=== PATIENT | female | born 2000 | race Caucasian/White ===

== ENCOUNTER 2023-07-31 15:11 | Observation (INO) ==
--- NOTE | 2023-07-31 15:54 | ED Triage Note ---
Date of Service July 31, 2023 History of Present Illness This patient was briefly evaluated while in triage. An abbreviated physical exam was performed. This patient is a 22-year-old Female who presents to the ED for evaluation of sharp abdominal pains x 24 hours midline/suprapubic nausea no vomiting no diarrhea/constipation LMP 1 week ago mild dysuria yest Physical Exam GENERAL: NAD CARDIOVASCULAR: RRR RESPIRATORY: CTA ABDOMEN: BS x 4. TTP in RLQ Initial orders for labs and / or imaging were placed and patient was placed in the waiting area until a bed is available. Please see further documentation for the full ED course. MDM / Impression Impression Impression: Abdominal pain, Acute appendicitis
[2023-07-31 16:55] LABS: Basophils # (auto) 0.04 K/uL (0.00-0.20); Basophils % (auto) 0.5 %; Eosinophils # (auto) 0.02 K/uL (0.00-0.50); Eosinophils % (auto) 0.2 %; Hematocrit (blood only) 39.4 % (37.0-47.0); Hemoglobin 12.4 g/dl (12.0-16.0); Immature Granulocytes # (auto) 0.02 K/uL (0.01-0.20); Immature Granulocytes % (auto) 0.2 %; Lymphocytes # (auto) 1.01 K/uL (1.20-3.40); Lymphocytes % (auto) 11.6 %; Mean Corpuscular Hemoglobin 25.7 pg (25.0-34.0); Mean Corpuscular Hgb Conc 31.5 g/dL (32.0-36.0); Mean Corpuscular Volume 81.7 fL (80.0-100.0); Mean Platelet Volume 9.8 fL (9.4-12.4); Monocytes # (auto) 0.48 K/uL (0.11-0.59); Monocytes % (auto) 5.5 %; Neutrophils # (auto) 7.12 K/uL (1.40-6.50); Platelet Count 310 K/uL (130-400); RDW Coefficient of Variation 15.9 % (11.5-14.5); RDW Standard Deviation 47.8 fL (36.4-46.3); Red Blood Count 4.82 M/uL (4.20-5.40); White Blood Count 8.69 K/ul (4.8-10.8)
[2023-07-31 17:04] LABS: Appearance Urine Cloudy (Clear); Bacteria Urine Automated 1+ (Negative); Bilirubin Urine Negative (Negative); Blood Urine Negative (Negative); Color Urine Yellow; Epithelial Cell Urine Auto >30 /lpf (0-5); Glucose Urine UA Negative (Negative); Ketones Urine Negative (Negative); Leukocyte Esterase Urine Negative (Negative); Nitrite Urine Negative (Negative); Protein Urine Negative (Negative); RBC Urine Automated 0-4 /hpf (0-4); Specific Gravity Urine 1.018 (1.000-1.030); Urobilinogen Urine Negative (Negative)
[2023-07-31 17:11] LABS: Pregnancy Test, Serum Negative (Negative)
[2023-07-31 17:20] LABS: Alanine Aminotransferase 10 U/L (7-52); Albumin Globulin Ratio 1.4 (0.9-2); Albumin Level 4.6 gm/dl (3.4-5.0); Alkaline Phosphatase 77 U/L (34-104); Anion Gap 6 (3-11); Aspartate Aminotransferase 16 U/L (13-39); BUN Creatinine Ratio 15.3 (10-20); Blood Urea Nitrogen 9 mg/dl (6-23); Calcium 9.6 mg/dl (8.6-10.3); Carbon Dioxide 29 mmol/L (21-32); Chloride 102 mmol/L (98-107); Creatinine Clr Calc Pharmacy 151.5 ml/min; Est GFR (African American) > 150.0 ml/min; Est GFR (Non-African American) 131.9 ml/min; Globulin 3.4 gm/dl (2.5-4.0); Glucose 128 mg/dl (70-99(Fasting)); Potassium 3.7 mmol/L (3.5-5.1); Sodium 137 mmol/L (136-145)
[2023-07-31] MEDS ORDERED: OPTIRAY 320 100ml IV ONE (18:13)
--- NOTE | 2023-07-31 19:03 | CT Scan Report ---
ABDOMEN AND PELVIS CT WITH IV CONTRAST CT DOSE: 829.51 mGy.cm HISTORY: Acute right lower quadrant abdominal pain RLQ abd pain TECHNIQUE: Multiaxial CT images of the abdomen and pelvis were performed following the IV administrat ion of 94 cc of Optiray, A dose lowering technique was utilized adhering to the principles of ALARA. COMPARISON STUDY: None. FINDINGS: The lung bases are clear. The liver, spleen, gallbladder, pancreas, kidneys, and adrenal gl ands are within normal limits. The appendix is dilated and fluid-filled measuring up to 11 mm transve rsely. There is periappendiceal inflammation without drainable fluid collection. Small amount of free pelvic fluid. No bowel wall thickening or obstruction. Moderate wall thickening which is partially d ecompressed. Uterus and adnexa are unremarkable. No suspicious lytic or blastic osseous lesions. IMPRESSION: Acute appendicitis. No pneumoperitoneum or abscess. ACT 112: Negative or not required by law. The above report was generated using voice recognition software. It may contain grammatical, syntax o r spelling errors. Electronically signed by: Ross Bateman M.D. 07/31/2023 7:02 PM
[2023-07-31] MEDS ORDERED: ACETAMINOPHEN 1,000 MG/100 ML VIAL IV STA (19:22)
--- NOTE | 2023-07-31 19:29 | Emergency Department Note ---
Impression & Plan Abdominal pain, Acute appendicitis ED Provider Note ED Provider Note NAME: JENSEN GOMEZ AGE:22 SEX: Female : 2000 ARRIVES VIA: private vehicle INFORMANT: Patient ED PROVIDER(s): María Mancia DO CHIEF COMPLAINT: abdominal pain HPI: This is a 22-year-old female presents emerged department due to concern for abdominal pain. Patient states she began with abdominal pain yesterday. She states it was around her bellybutton as well as across her lower abdomen. She states pain seemed lower today and was worse on the right than the left. Patient denies any coming fevers, chills, nausea or vomiting. No recent change in urine or stools. No prior GI issues or abdominal surgery. Patient denies chance of . No recent illness. Patient states she last had a small piece of bread at 3pm. I did update the patient's father via her cell phone at her request. PAST MEDICAL HISTORY:See Below PAST SURGICAL HISTORY:See Below FAMILY HISTORY:See Below SOCIAL HISTORY:See Below HOME MEDICATIONS:See Below ALLERGIES:See Below VITALS:See Below PHYSICAL EXAMINATION: GENERAL: alert, well appearing, well nourished, no distress, non-toxic EYE EXAM: normal conjunctiva, PERRL and EOM's grossly intact OROPHARYNX: no exudate, no erythema, lips, buccal mucosa, and tongue normal and mucous membranes are moist NECK: supple, no nuchal rigidity, no adenopathy, non-tender LUNGS: Clear to auscultation. Normal chest wall mechanics, no w/r/r HEART: no murmurs, S1 normal and S2 normal ABDOMEN: abdomen soft, tenderness b/l LQ R>L, normo-active bowel sounds, no masses, no rebound or guarding. BACK: Back is symmetrical on inspection and there is no deformity, no midline tenderness, no CVA tenderness. SKIN: no rashes, petechiae, orbruising UPPER EXTREMITIES: upper extremities are grossly normal. FROM, nml pulses b/l. LOWER EXTREMITIES: No pitting edema. FROM, nml pulses b/l. NEURO EXAM: Normal sensorium, cranial nerves II-XII grossly intact, normal speech, no facial droop,nogross weakness of arms, no gross weakness of legs. Gross sensation intact. No ataxia. Vital Signs: reviewed and remarkable Differential Diagnosis: Colitis, viral syndrome, bowel obstruction, appendicitis, perforation, GI bleed, ovarian cysts, ovarian torsion, PID, UTI, pyelonephritis, as well as others were considered MEDICAL DECISION MAKING: This is a 22-year-old female who presents emergency department due to concern for abdominal pain for greater than 24 hours. Patient was afebrile vital signs stable. Labs drawn and sent, IV established, and patient sent for CT imaging. Patient initially evaluated in a triage waiting room area due to her presentation and a day of high volume and acuity. We did discuss the lab and CT findings. I also discussed the findings with her father over her cell phone per her request. We discussed usual treatment and plan with an uncomplicated acute appendicitis. I did discuss the case with Dr. Gonzalez of general surgery. Patient started on IV fluids and given additional IV Tylenol to help with pain. She was otherwise hemodynamically stable awaiting operative intervention. Consultation(s): 1929: Discussed with Dr. Gonzalez, gen surg. ER Treatment Provided: See below Diagnostics Interpreted By Me: -ECG: [] -Cardiac Monitoring: An order was placed for continuous cardiac monitoring. The monitor shows a rate of 70 with normal sinus rhythm. -Laboratory studies: As stated above and show below. -Imaging studies: [] Triage Nursing Note Reviewed Prior/Outside Records Reviewed Past Med/Surg History Medical History No significant past medical history Surgical History H/O wisdom tooth extraction Social History Smoking Status: Never smoker Hx Alcohol Use: Yes Alcohol type: hard liquor Hx Substance Use: No Preferred Language: Hungarian Communication Ability: Effective Shaper Machine Hand Required: No Beliefs That Will Affect Care: None Current Living Situation: Other Current Living Situation Comment: Apartment Other Information That Helps Us Care for You: No Feels Safe at Home: Yes Assistive Devices: None Allergies Allergies Allergy/AdvReac Type Severity Reaction Status Date / Time No Known Allergies Allergy Verified 08/01/23 09:08 Home Meds Home Medications Medication Instructions Recorded Confirmed No Known Home Medications 07/31/23 07/31/23 Results & Data (ED) Vital Signs Vital Signs - 24 hr 07/31/23 15:51 07/31/23 20:15 07/31/23 20:31 Temperature 36.5 C Temperature Source Temporal Artery Scan Pulse Rate 69 70 Pulse Rate [Apical] 62 Respiratory Rate 18 20 19 Blood Pressure 130/87 143/99 H Blood Pressure [Left Arm] 147/85 H Blood Pressure Mean 101 113 Blood Pressure Mean [Left Arm] 105 Pulse Oximetry 97 97 100 Oxygen Delivery Method Room Air Room Air Room Air Sepsis Recent Fever Within 48 Hours No Sepsis New/Unexplained Change in Mental Status N/A Sepsis Action Taken by Nursing No Action Required Laboratory Data 07/31/23 16:31 07/31/23 16:31 Lab Results 07/31/23 07/31/23 07/31/23 Range/Units 16:31 16:31 16:31 WBC 8.69 (4.8-10.8) K/ul RBC 4.82 (4.20-5.40) M/uL Hgb 12.4 (12.0-16.0) g/dl Hct 39.4 (37.0-47.0) % MCV 81.7 (80.0-100.0) fL MCH 25.7 (25.0-34.0) pg MCHC 31.5 L (32.0-36.0) g/dL RDW Std Deviation 47.8 H (36.4-46.3) fL RDW Coeff of Sebasti[place] 15.9 H (11.5-14.5) % Plt Count 310 (130-400) K/uL MPV 9.8 (9.4-12.4) fL Immature Gran % (Auto) 0.2 % Neut % (Auto) 82.0 % Lymph % (Auto) 11.6 % [place] % (Auto) 5.5 % Eos % (Auto) 0.2 % Baso % (Auto) 0.5 % Neut # (Auto) 7.12 H (1.40-6.50) K/uL Lymph # (Auto) 1.01 L (1.20-3.40) K/uL [place] # (Auto) 0.48 (0.11-0.59) K/uL Eos # (Auto) 0.02 (0.00-0.50) K/uL Baso # (Auto) 0.04 (0.00-0.20) K/uL Immature Gran # (Auto) 0.02 (0.01-0.20) K/uL Sodium 137 (136-145) mmol/L Potassium 3.7 (3.5-5.1) mmol/L Chloride 102 (98-107) mmol/L Carbon Dioxide 29 (21-32) mmol/L Anion Gap 6 (3-11) BUN 9 (6-23) mg/dl Creatinine 0.59 L (0.6-1.2) mg/dl Est Cr Clr Drug Dosing 151.5 ml/min Est GFR ( Amer) > 150.0 ml/min Est GFR (Non-Af Amer) 131.9 ml/min BUN/Creatinine Ratio 15.3 (10-20) Glucose 128 H (70-99(Fasting)) mg/dl Calcium 9.6 (8.6-10.3) mg/dl Total Bilirubin 1.0 (0.2-1.0) mg/dl AST 16 (13-39) U/L ALT 10 (7-52) U/L Alkaline Phosphatase 77 (34-104) U/L Total Protein 8.0 (6.0-8.3) gm/dl Albumin 4.6 (3.4-5.0) gm/dl Globulin 3.4 (2.5-4.0) gm/dl Albumin/Globulin Ratio 1.4 (0.9-2) HCG, Qual Negative (Negative) Urine Color Urine Appearance (Clear) Urine pH (4.5-7.5) Ur Specific [place] (1.000-1.030) Urine Protein (Negative) Urine Glucose (UA) (Negative) Urine Ketones (Negative) Urine Blood (Negative) Urine Nitrite (Negative) Urine Bilirubin (Negative) Urine Urobilinogen (Negative) Ur Leukocyte Esterase (Negative) Urine WBC (Auto) (0-5) /hpf Urine RBC (Auto) (0-4) /hpf U Hyaline Cast (Auto) (0-5) /lpf U Epithel Cells (Auto) (0-5) /lpf Urine Bacteria (Auto) (Negative) SARS-CoV-2, RNA, NAAT (NEGATIVE) 07/31/23 07/31/23 Range/Units 16:41 19:31 WBC (4.8-10.8) K/ul RBC (4.20-5.40) M/uL Hgb (12.0-16.0) g/dl Hct (37.0-47.0) % MCV (80.0-100.0) fL MCH (25.0-34.0) pg MCHC (32.0-36.0) g/dL RDW Std Deviation (36.4-46.3) fL RDW Coeff of Sebasti[place] (11.5-14.5) % Plt Count (130-400) K/uL MPV (9.4-12.4) fL Immature Gran % (Auto) % Neut % (Auto) % Lymph % (Auto) % [place] % (Auto) % Eos % (Auto) % Baso % (Auto) % Neut # (Auto) (1.40-6.50) K/uL Lymph # (Auto) (1.20-3.40) K/uL [place] # (Auto) (0.11-0.59) K/uL Eos # (Auto) (0.00-0.50) K/uL Baso # (Auto) (0.00-0.20) K/uL Immature Gran # (Auto) (0.01-0.20) K/uL Sodium (136-145) mmol/L Potassium (3.5-5.1) mmol/L Chloride (98-107) mmol/L Carbon Dioxide (21-32) mmol/L Anion Gap (3-11) BUN (6-23) mg/dl Creatinine (0.6-1.2) mg/dl Est Cr Clr Drug Dosing ml/min Est GFR ( Amer) ml/min Est GFR (Non-Af Amer) ml/min BUN/Creatinine Ratio (10-20) Glucose (70-99(Fasting)) mg/dl Calcium (8.6-10.3) mg/dl Total Bilirubin (0.2-1.0) mg/dl AST (13-39) U/L ALT (7-52) U/L Alkaline Phosphatase (34-104) U/L Total Protein (6.0-8.3) gm/dl Albumin (3.4-5.0) gm/dl Globulin (2.5-4.0) gm/dl Albumin/Globulin Ratio (0.9-2) HCG, Qual (Negative) Urine Color Yellow Urine Appearance Cloudy A (Clear) Urine pH 8.0 H (4.5-7.5) Ur Specific [place] 1.018 (1.000-1.030) Urine Protein Negative (Negative) Urine Glucose (UA) Negative (Negative) Urine Ketones Negative (Negative) Urine Blood Negative (Negative) Urine Nitrite Negative (Negative) Urine Bilirubin Negative (Negative) Urine Urobilinogen Negative (Negative) Ur Leukocyte Esterase Negative (Negative) Urine WBC (Auto) 1-5 (0-5) /hpf Urine RBC (Auto) 0-4 (0-4) /hpf U Hyaline Cast (Auto) 1-5 (0-5) /lpf U Epithel Cells (Auto) >30 H (0-5) /lpf Urine Bacteria (Auto) 1+ H (Negative) SARS-CoV-2, RNA, NAAT NEGATIVE (NEGATIVE) Administered Medications Ampicillin Sodium/Sulbactam Sodium 1,500 mg/ Sodium Chloride 100 mls @ 200 mls/hr IV Q6H AMAYA; Protocol Stop: 08/10/23 21:59 Last Infusion: 08/01/23 11:58 Dose: 0 mls/hr Documented By: Admin: 08/01/23 09:59 Dose: 200 mls/hr Documented By: Infusion: 08/01/23 05:10 Dose: 0 mls/hr Documented By: Admin: 08/01/23 03:53 Dose: 200 mls/hr Documented By: Infusion: 07/31/23 22:50 Dose: 0 mls/hr Documented By: Admin: 07/31/23 22:17 Dose: 200 mls/hr Documented By: YOJANA Lactated Ringer's (Lr) 1,000 mls @ 15 mls/hr IV .Q24H AMAYA Stop: 08/31/23 08:59 Last Infusion: 08/01/23 09:42 Dose: 0 mls/hr Documented By: [facility] Admin: 08/01/23 09:24 Dose: 15 mls/hr Documented By: [facility] Ketorolac Tromethamine (Ketorolac Tromethamine 15 Mg/Ml Vial) 15 mg IV Q6H PRN PRN Reason: Pain & Pre PT Stop: 08/05/23 21:50 Last Admin: 08/01/23 03:52 Dose: 15 mg Documented By: [facility] Admin: 07/31/23 22:16 Dose: 15 mg Documented By: YOJANA Morphine Sulfate (Morphine Sulfate 2 Mg/Ml Carp) 2 mg IV Q3H PRN PRN Reason: Pain (1,2,3,4,5) & Pre PT Stop: 08/14/23 21:50 Last Admin: 08/01/23 08:33 Dose: 2 mg Documented By: Admin: 07/31/23 23:22 Dose: 2 mg Documented By: YOJANA Oxycodone/Acetaminophen (Oxycodone/Acetaminophen 5mg/325mg Tab) 1 tab PO Q4H PRN PRN Reason: Pain Stop: 08/15/23 11:50 Last Admin: 08/01/23 12:38 Dose: 1 tab Documented By: DAPHNE Discontinued Medications Bupivacaine HCl/Epinephrine Bitart (Bupivacaine/Epinephrine 0.5% Mpf 1:200,000 30 Ml Vial) Confirm Administered Dose 30 ml .ROUTE .STK-MED ONE Stop: 08/01/23 09:39 Last Admin: 08/01/23 10:31 Dose: 15 ml Documented By: JUAN A Sodium Chloride (Nss) 1,000 mls @ 125 mls/hr IV .Q8H AMAYA Stop: 08/30/23 19:29 Last Admin: 08/01/23 05:45 Dose: 125 mls/hr Documented By: Infusion: 08/01/23 05:45 Dose: 125 mls/hr Documented By: Admin: 07/31/23 21:58 Dose: 125 mls/hr Documented By: Infusion: 07/31/23 21:58 Dose: 125 mls/hr Documented By: Admin: 07/31/23 20:11 Dose: 125 mls/hr Documented By: ML Acetaminophen (Ofirmev) 1,000 mg in 100 mls @ 400 mls/hr IV NOW STA Stop: 07/31/23 19:36 Last Infusion: 07/31/23 21:50 Dose: 0 mls/hr Documented By: Admin: 07/31/23 20:11 Dose: 400 mls/hr Documented By: ML Acetaminophen (Ofirmev) 1,000 mg in 100 mls @ 400 mls/hr IV Q8H PRN PRN Reason: Mod-Sev Pain (Scale 4-10) Stop: 08/03/23 21:50 Last Infusion: 08/01/23 12:02 Dose: 0 mls/hr Documented By: Admin: 08/01/23 11:40 Dose: 400 mls/hr Documented By: LAURA Ioversol (Optiray 320 100ml) 94 ml IV ONCE ONE Stop: 07/31/23 18:14 Last Admin: 07/31/23 18:14 Dose: 94 ml Documented By: PAIGE Imaging Data Radiologist's Impression: Abdomen/Pelvis CT 07/31/23 15:[address] WITH IV CONTRAST CT DOSE: 829.51 mGy.cm HISTORY: Acute right lower quadrant abdominal pain RLQ abd pain TECHNIQUE: Multiaxial CT images of the abdomen and pelvis were performed following the IV administration of 94 cc of Optiray, A dose lowering technique was utilized adhering to the principles of ALARA. COMPARISON STUDY: None. FINDINGS: The lung bases are clear. The liver, spleen, gallbladder, pancreas, kidneys, and adrenal glands are within normal limits. The appendix is dilated and fluid-filled measuring up to 11 mm transversely. There is periappendiceal inflammation without drainable fluid collection. Small amount of free pelvic fluid. No bowel wall thickening or obstruction. Moderate wall thickening which is partially decompressed. Uterus and adnexa are unremarkable. No suspicious lytic or blastic osseous lesions. IMPRESSION: Acute appendicitis. No pneumoperitoneum or abscess. ACT 112: Negative or not required by law. The above report was generated using voice recognition software. It may contain grammatical, syntax or spelling errors. Electronically signed by: Ross Bateman M.D. 07/31/2023 7:02 PM Discharge Plan Visit Data Chief Complaint: Abdominal Pain Stated Complaint: SHARP ABD PAIN ED Provider: María Mancia Discharge Problem: Abdominal pain, Acute appendicitis Patient Disposition: Admitted As Inpatient Discharge Instructions Interventions: ED Discharge Assessment Last Done: 07/31/23 22:02
[2023-07-31] MEDS: SODIUM CHLORIDE 0.9% 1,000 ML IV SCH ×2 (20:11→21:58)
--- NOTE | 2023-07-31 20:12 | History & Physical Report ---
Date of Service July 31, 2023 Assessment & Plan (1) Acute appendicitis: Plan: Discussed lap appendectomy with risks of bleeding, infection, conversion to open, postop ileus, postop abscess. Expected hospital stay and recovery time reviewed. I was planning on surgery tonight but as she ate at 5 pm and is comfortable with normal wbc ct and mild pain on exam, can likely wait the required time to lower aspiration risk (discussed with anesthesia). Thus, will plan on observing tonight on IVF and IV antibiotics and proceeding to OR in the AM. She is in agreement with this plan. Notes her dad is flying in from [place] tomorrow and should be able to help with postop care. History of Present Illness Chief Complaint: acute appendicitis Primary Care Provider: [facility] 22 yr old woman with abdominal pain since yesterday. Describes pain as sharp, throughout her abdomen,worse with movement, up to 8 in intensity, better with pain meds and IVF. Pain was constant - initially thought it was cramps but it did not get better. No fevers, mild nausea with the pain, no change in bowel habits. [place] chilled this am. LMP was 07/22/23. Tried advil yesterday and it did not help. Last ate at 6 pm while in ER (half of bread). Prior was at 3 pm with the other half of the baguette of bread. Relatively comfortable now. Allergies Allergy/AdvReac Type Severity Reaction Status Date / Time No Known Allergies Allergy Verified 08/21/22 15:57 Home Medications Medication Instructions Recorded Confirmed Type No Known Home Medications 07/31/23 07/31/23 History Past Med/Surg History Medical History No significant past medical history Surgical History H/O wisdom tooth extraction Social History Smoking Status: Never smoker Preferred Language: Dominican Feels Safe at Home: Yes Review of Systems Review of Systems: All systems reviewed & are unremarkable except as noted in HPI & below Results & Data Results & Data Vital Signs (Past 12 Hours) Vital Signs Temp Pulse Resp BP Pulse Ox O2 Del Method 07/31/23 15:51 36.5 C 69 18 130/87 97 Room Air Laboratory Results 07/31/23 07/31/23 07/31/23 Range/Units 19:31 16:41 16:31 WBC (4.8-10.8) K/ul RBC (4.20-5.40) M/uL Hgb (12.0-16.0) g/dl Hct (37.0-47.0) % MCV (80.0-100.0) fL MCH (25.0-34.0) pg MCHC (32.0-36.0) g/dL RDW Std Deviation (36.4-46.3) fL RDW Coeff of [place] (11.5-14.5) % Plt Count (130-400) K/uL MPV (9.4-12.4) fL Immature Gran % (Auto) % Neut % (Auto) % Lymph % (Auto) % [place] % (Auto) % Eos % (Auto) % Baso % (Auto) % Neut # (Auto) (1.40-6.50) K/uL Lymph # (Auto) (1.20-3.40) K/uL [place] # (Auto) (0.11-0.59) K/uL Eos # (Auto) (0.00-0.50) K/uL Baso # (Auto) (0.00-0.20) K/uL Immature Gran # (Auto) (0.01-0.20) K/uL Sodium (136-145) mmol/L Potassium (3.5-5.1) mmol/L Chloride (98-107) mmol/L Carbon Dioxide (21-32) mmol/L Anion Gap (3-11) BUN (6-23) mg/dl Creatinine (0.6-1.2) mg/dl Est Cr Clr Drug Dosing ml/min Est GFR ( Amer) ml/min Est GFR (Non-Af Amer) ml/min BUN/Creatinine Ratio (10-20) Glucose (70-99(Fasting)) mg/dl Calcium (8.6-10.3) mg/dl Total Bilirubin (0.2-1.0) mg/dl AST (13-39) U/L ALT (7-52) U/L Alkaline Phosphatase (34-104) U/L Total Protein (6.0-8.3) gm/dl Albumin (3.4-5.0) gm/dl Globulin (2.5-4.0) gm/dl Albumin/Globulin Ratio (0.9-2) HCG, Qual Negative (Negative) Urine Color Yellow Urine Appearance Cloudy A (Clear) Urine pH 8.0 H (4.5-7.5) Ur Specific [place] 1.018 (1.000-1.030) Urine Protein Negative (Negative) Urine Glucose (UA) Negative (Negative) Urine Ketones Negative (Negative) Urine Blood Negative (Negative) Urine Nitrite Negative (Negative) Urine Bilirubin Negative (Negative) Urine Urobilinogen Negative (Negative) Ur Leukocyte Esterase Negative (Negative) Urine WBC (Auto) 1-5 (0-5) /hpf Urine RBC (Auto) 0-4 (0-4) /hpf U Hyaline Cast (Auto) 1-5 (0-5) /lpf U Epithel Cells (Auto) >30 H (0-5) /lpf Urine Bacteria (Auto) 1+ H (Negative) SARS-CoV-2, RNA, NAAT NEGATIVE (NEGATIVE) 07/31/23 07/31/23 Range/Units 16:31 16:31 WBC 8.69 (4.8-10.8) K/ul RBC 4.82 (4.20-5.40) M/uL Hgb 12.4 (12.0-16.0) g/dl Hct 39.4 (37.0-47.0) % MCV 81.7 (80.0-100.0) fL MCH 25.7 (25.0-34.0) pg MCHC 31.5 L (32.0-36.0) g/dL RDW Std Deviation 47.8 H (36.4-46.3) fL RDW Coeff of [place] 15.9 H (11.5-14.5) % Plt Count 310 (130-400) K/uL MPV 9.8 (9.4-12.4) fL Immature Gran % (Auto) 0.2 % Neut % (Auto) 82.0 % Lymph % (Auto) 11.6 % [place] % (Auto) 5.5 % Eos % (Auto) 0.2 % Baso % (Auto) 0.5 % Neut # (Auto) 7.12 H (1.40-6.50) K/uL Lymph # (Auto) 1.01 L (1.20-3.40) K/uL [place] # (Auto) 0.48 (0.11-0.59) K/uL Eos # (Auto) 0.02 (0.00-0.50) K/uL Baso # (Auto) 0.04 (0.00-0.20) K/uL Immature Gran # (Auto) 0.02 (0.01-0.20) K/uL Sodium 137 (136-145) mmol/L Potassium 3.7 (3.5-5.1) mmol/L Chloride 102 (98-107) mmol/L Carbon Dioxide 29 (21-32) mmol/L Anion Gap 6 (3-11) BUN 9 (6-23) mg/dl Creatinine 0.59 L (0.6-1.2) mg/dl Est Cr Clr Drug Dosing 151.5 ml/min Est GFR ( Amer) > 150.0 ml/min Est GFR (Non-Af Amer) 131.9 ml/min BUN/Creatinine Ratio 15.3 (10-20) Glucose 128 H (70-99(Fasting)) mg/dl Calcium 9.6 (8.6-10.3) mg/dl Total Bilirubin 1.0 (0.2-1.0) mg/dl AST 16 (13-39) U/L ALT 10 (7-52) U/L Alkaline Phosphatase 77 (34-104) U/L Total Protein 8.0 (6.0-8.3) gm/dl Albumin 4.6 (3.4-5.0) gm/dl Globulin 3.4 (2.5-4.0) gm/dl Albumin/Globulin Ratio 1.4 (0.9-2) HCG, Qual (Negative) Urine Color Urine Appearance (Clear) Urine pH (4.5-7.5) Ur Specific [place] (1.000-1.030) Urine Protein (Negative) Urine Glucose (UA) (Negative) Urine Ketones (Negative) Urine Blood (Negative) Urine Nitrite (Negative) Urine Bilirubin (Negative) Urine Urobilinogen (Negative) Ur Leukocyte Esterase (Negative) Urine WBC (Auto) (0-5) /hpf Urine RBC (Auto) (0-4) /hpf U Hyaline Cast (Auto) (0-5) /lpf U Epithel Cells (Auto) (0-5) /lpf Urine Bacteria (Auto) (Negative) SARS-CoV-2, RNA, NAAT (NEGATIVE) Diagnostic Findings CT scan with acute uncomplicated appendicitis with 11 mm appendix. films personally reviewed and interpreted Medications Administered IV tylenol
[2023-07-31] MEDS ORDERED: MoRPHine SULFATE 4 MG/ML 1 ML CARP\\VIAL IV PRN (21:51)
[2023-07-31] MEDS ORDERED: ACETAMINOPHEN 1,000 MG/100 ML VIAL IV PRN (21:51)
[2023-07-31] MEDS ORDERED: ONDANSETRON INJ 2 MG/ML 2 ML VIAL IV PRN (21:51)
[2023-07-31] MEDS: KETOROLAC TROMETHAMINE 15 MG/ML VIAL IV PRN (22:16)
[2023-07-31] MEDS: AMPICILLIN SOD/SULBACTAM SOD 1,500 MG in SODIUM CHLOR 0.9% MINI-B 100 ML IV SCH (22:17)
[2023-07-31] MEDS: MoRPHine SULFATE 2 MG/ML CARP IV PRN (23:22)
[2023-08-01] MEDS: KETOROLAC TROMETHAMINE 15 MG/ML VIAL IV PRN (03:52)
[2023-08-01] MEDS: AMPICILLIN SOD/SULBACTAM SOD 1,500 MG in SODIUM CHLOR 0.9% MINI-B 100 ML IV SCH ×2 (03:53→09:59)
[2023-08-01] MEDS: SODIUM CHLORIDE 0.9% 1,000 ML IV SCH (05:45)
[2023-08-01] MEDS: MoRPHine SULFATE 2 MG/ML CARP IV PRN ×2 (08:33→14:18)
[2023-08-01] MEDS ORDERED: LACTATED RINGER'S 1,000 ML IV SCH (09:00)
--- NOTE | 2023-08-01 09:13 | Anesthesiology Consultation ---
Date of Service August 01, 2023 Assessment & Plan (1) Encounter for pre-operative examination: Chart Review Chart Review: Acceptable Risk for Surgery and Patient NOT seen in Pre Admission Testing Consults Requested none History Surgery Operation Date: 07/31/23 20:45 Proposed Procedures p Laparoscopic Appendectomy - Brisa Gonzalez MD Operation Date: 08/01/23 09:10 Proposed Procedures p Laparoscopic Appendectomy - Hamlet Coughlin MD Height/Weight Height: 5 ft 8 in Weight: 70.4 kg Allergies Allergy/AdvReac Type Severity Reaction Status Date / Time No Known Allergies Allergy Verified 08/01/23 09:08 Medications Home Medications Medication Instructions Recorded Confirmed Last Taken No Known Home Medications 07/31/23 07/31/23 Unknown Active Medications Generic Name Dose Route Start Last Admin Trade Name Freq PRN Reason Stop Dose Admin Sodium Chloride 1,000 mls @ 125 mls/hr 07/31/23 19:30 08/01/23 05:45 Nss IV 08/30/23 19:29 125 mls/hr .Q8H AMAYA Administration Ampicillin Sodium/Sulbactam 100 mls @ 200 mls/hr 07/31/23 22:00 08/01/23 05:10 Sodium 1,500 mg/ Sodium IV 08/10/23 21:59 Infused Chloride Q6H AAMYA Infusion Protocol Ketorolac Tromethamine 15 mg 07/31/23 21:51 08/01/23 03:52 Ketorolac Tromethamine 15 Mg/Ml Vial IV 08/05/23 21:50 15 mg Q6H PRN Administration Pain & Pre PT Morphine Sulfate 2 mg 07/31/23 21:51 08/01/23 08:33 Morphine Sulfate 2 Mg/Ml Carp IV 08/14/23 21:50 2 mg Q3H PRN Administration Pain (1,2,3,4,5) & Pre PT Past Medical History Medical History No significant past medical history Past Surgical History Surgical History H/O wisdom tooth extraction Social History Smoking Status: Never smoker Hx Alcohol Use: Yes Alcohol type: hard liquor alcohol intake frequency: a few times a week Hx Substance Use: No substance use type: does not use Physical Exam Vital Signs Last Vital Signs Temp 98.1 F 08/01/23 08:17 Pulse 60 08/01/23 08:17 Resp 16 08/01/23 08:17 BP 121/72 08/01/23 08:17 Pulse Ox 99 08/01/23 08:17 O2 Del Method Room Air 08/01/23 08:17 Testing Laboratory Results 07/31/23 16:31 07/31/23 16:31 Urine Color Yellow 07/31/23 16:41 Urine Appearance Cloudy (Clear) A 07/31/23 16:41 Urine pH 8.0 (4.5-7.5) H 07/31/23 16:41 Ur Specific [place] 1.018 (1.000-1.030) 07/31/23 16:41 Urine Protein Negative (Negative) 07/31/23 16:41 Urine Glucose (UA) Negative (Negative) 07/31/23 16:41 Urine Ketones Negative (Negative) 07/31/23 16:41 Urine Nitrite Negative (Negative) 07/31/23 16:41 Ur Leukocyte Esterase Negative (Negative) 07/31/23 16:41 Urine WBC (Auto) 1-5 /hpf (0-5) 07/31/23 16:41 Urine RBC (Auto) 0-4 /hpf (0-4) 07/31/23 16:41 U Hyaline Cast (Auto) 1-5 /lpf (0-5) 07/31/23 16:41 U Epithel Cells (Auto) >30 /lpf (0-5) H 07/31/23 16:41 Urine Bacteria (Auto) 1+ (Negative) H 07/31/23 16:41
--- NOTE | 2023-08-01 09:19 | History & Physical Bridge Note ---
Date of Service August 01, 2023 History & Physical Bridge Note I have examined the patient, reviewed the History & Physical and in the interval since the performance of the History & Physical I have noted the following changes of clinical significance: no changes noted
[2023-08-01] MEDS ORDERED: ePHEDrine sulfate 50 MG/ML AMP IV PRN (09:20)
[2023-08-01] MEDS ORDERED: ONDANSETRON INJ 2 MG/ML 2 ML VIAL IV PRN (09:20)
[2023-08-01] MEDS ORDERED: fentaNYL citrate PF 100 MCG/2 ML VIAL IV PRN (09:20)
[2023-08-01] MEDS ORDERED: ATROPINE SULFATE 0.1 MG/ML 10ML SYR IV PRN (09:20)
--- NOTE | 2023-08-01 09:23 | History & Physical Report ---
Date of Service August 01, 2023 Assessment & Plan (1) Acute appendicitis: Plan 22-year-old woman with acute appendicitis. We discussed the risks and benefits of laparoscopic, possible open appendectomy. All questions were answered and she is agreeable to proceed. We will take her to the operating room at the earliest convenience. Admission and Anticipated Discharge Date Admission Date: July 31, 2023 History of Present Illness Primary Care Provider: [facility] 22-year-old female presents with 1 day history of severe right lower quadrant pain, nausea vomiting. CT scan demonstrates appendicitis. Allergies Allergy/AdvReac Type Severity Reaction Status Date / Time No Known Allergies Allergy Verified 08/01/23 09:08 Home Medications Medication Instructions Recorded Confirmed Type No Known Home Medications 07/31/23 07/31/23 History Past Med/Surg History Medical History No significant past medical history Surgical History H/O wisdom tooth extraction Social History Smoking Status: Never smoker Hx Alcohol Use: Yes Alcohol type: hard liquor Hx Substance Use: No Preferred Language: Hungarian Communication Ability: Effective Market Development Analyst Required: No Beliefs That Will Affect Care: None Current Living Situation: Other Current Living Situation Comment: Apartment Other Information That Helps Us Care for You: No Feels Safe at Home: Yes Assistive Devices: None Review of Systems Review of Systems: All systems reviewed & are unremarkable except as noted in HPI & below Physical Exam Constitutional: WD/WN, vitals as above Eyes: PERRL, conjunctivae normal, anicteric sclerae Neck: trachea midline, no thyromegaly Respiratory: normal respiratory effort; no respiratory distress and no labored breathing Cardiovascular: Rate/Rhythm: regular rate and regular rhythm Gastrointestinal (Abdomen): Inspection/Auscultation: abdomen normal to inspection; abdomen not distended Percussion/Palpation: + abdomen tender (RLQ) and abdomen soft; no guarding and abdomen not rigid Skin: no rashes, warm and dry Psychiatric: A+Ox3, euthymic affect Results & Data Results & Data Vital Signs (Past 12 Hours) Vital Signs Temp Pulse Resp BP Pulse Ox O2 Del Method 08/01/23 08:17 36.7 C 60 16 121/72 99 Room Air 07/31/23 22:50 Room Air 07/31/23 22:50 37.1 C 58 L 16 119/74 100 Room Air Laboratory Results 07/31/23 07/31/23 07/31/23 Range/Units 19:31 16:41 16:31 WBC (4.8-10.8) K/ul RBC (4.20-5.40) M/uL Hgb (12.0-16.0) g/dl Hct (37.0-47.0) % MCV (80.0-100.0) fL MCH (25.0-34.0) pg MCHC (32.0-36.0) g/dL RDW Std Deviation (36.4-46.3) fL RDW Coeff of Sebastián (11.5-14.5) % Plt Count (130-400) K/uL MPV (9.4-12.4) fL Immature Gran % (Auto) % Neut % (Auto) % Lymph % (Auto) % [place] % (Auto) % Eos % (Auto) % Baso % (Auto) % Neut # (Auto) (1.40-6.50) K/uL Lymph # (Auto) (1.20-3.40) K/uL [place] # (Auto) (0.11-0.59) K/uL Eos # (Auto) (0.00-0.50) K/uL Baso # (Auto) (0.00-0.20) K/uL Immature Gran # (Auto) (0.01-0.20) K/uL Sodium (136-145) mmol/L Potassium (3.5-5.1) mmol/L Chloride (98-107) mmol/L Carbon Dioxide (21-32) mmol/L Anion Gap (3-11) BUN (6-23) mg/dl Creatinine (0.6-1.2) mg/dl Est Cr Clr Drug Dosing ml/min Est GFR ( Amer) ml/min Est GFR (Non-Af Amer) ml/min BUN/Creatinine Ratio (10-20) Glucose (70-99(Fasting)) mg/dl Calcium (8.6-10.3) mg/dl Total Bilirubin (0.2-1.0) mg/dl AST (13-39) U/L ALT (7-52) U/L Alkaline Phosphatase (34-104) U/L Total Protein (6.0-8.3) gm/dl Albumin (3.4-5.0) gm/dl Globulin (2.5-4.0) gm/dl Albumin/Globulin Ratio (0.9-2) HCG, Qual Negative (Negative) Urine Color Yellow Urine Appearance Cloudy A (Clear) Urine pH 8.0 H (4.5-7.5) Ur Specific [place] 1.018 (1.000-1.030) Urine Protein Negative (Negative) Urine Glucose (UA) Negative (Negative) Urine Ketones Negative (Negative) Urine Blood Negative (Negative) Urine Nitrite Negative (Negative) Urine Bilirubin Negative (Negative) Urine Urobilinogen Negative (Negative) Ur Leukocyte Esterase Negative (Negative) Urine WBC (Auto) 1-5 (0-5) /hpf Urine RBC (Auto) 0-4 (0-4) /hpf U Hyaline Cast (Auto) 1-5 (0-5) /lpf U Epithel Cells (Auto) >30 H (0-5) /lpf Urine Bacteria (Auto) 1+ H (Negative) SARS-CoV-2, RNA, NAAT NEGATIVE (NEGATIVE) 07/31/23 07/31/23 Range/Units 16:31 16:31 WBC 8.69 (4.8-10.8) K/ul RBC 4.82 (4.20-5.40) M/uL Hgb 12.4 (12.0-16.0) g/dl Hct 39.4 (37.0-47.0) % MCV 81.7 (80.0-100.0) fL MCH 25.7 (25.0-34.0) pg MCHC 31.5 L (32.0-36.0) g/dL RDW Std Deviation 47.8 H (36.4-46.3) fL RDW Coeff of Sebastián 15.9 H (11.5-14.5) % Plt Count 310 (130-400) K/uL MPV 9.8 (9.4-12.4) fL Immature Gran % (Auto) 0.2 % Neut % (Auto) 82.0 % Lymph % (Auto) 11.6 % [place] % (Auto) 5.5 % Eos % (Auto) 0.2 % Baso % (Auto) 0.5 % Neut # (Auto) 7.12 H (1.40-6.50) K/uL Lymph # (Auto) 1.01 L (1.20-3.40) K/uL [place] # (Auto) 0.48 (0.11-0.59) K/uL Eos # (Auto) 0.02 (0.00-0.50) K/uL Baso # (Auto) 0.04 (0.00-0.20) K/uL Immature Gran # (Auto) 0.02 (0.01-0.20) K/uL Sodium 137 (136-145) mmol/L Potassium 3.7 (3.5-5.1) mmol/L Chloride 102 (98-107) mmol/L Carbon Dioxide 29 (21-32) mmol/L Anion Gap 6 (3-11) BUN 9 (6-23) mg/dl Creatinine 0.59 L (0.6-1.2) mg/dl Est Cr Clr Drug Dosing 151.5 ml/min Est GFR ( Amer) > 150.0 ml/min Est GFR (Non-Af Amer) 131.9 ml/min BUN/Creatinine Ratio 15.3 (10-20) Glucose 128 H (70-99(Fasting)) mg/dl Calcium 9.6 (8.6-10.3) mg/dl Total Bilirubin 1.0 (0.2-1.0) mg/dl AST 16 (13-39) U/L ALT 10 (7-52) U/L Alkaline Phosphatase 77 (34-104) U/L Total Protein 8.0 (6.0-8.3) gm/dl Albumin 4.6 (3.4-5.0) gm/dl Globulin 3.4 (2.5-4.0) gm/dl Albumin/Globulin Ratio 1.4 (0.9-2) HCG, Qual (Negative) Urine Color Urine Appearance (Clear) Urine pH (4.5-7.5) Ur Specific [place] (1.000-1.030) Urine Protein (Negative) Urine Glucose (UA) (Negative) Urine Ketones (Negative) Urine Blood (Negative) Urine Nitrite (Negative) Urine Bilirubin (Negative) Urine Urobilinogen (Negative) Ur Leukocyte Esterase (Negative) Urine WBC (Auto) (0-5) /hpf Urine RBC (Auto) (0-4) /hpf U Hyaline Cast (Auto) (0-5) /lpf U Epithel Cells (Auto) (0-5) /lpf Urine Bacteria (Auto) (Negative) SARS-CoV-2, RNA, NAAT (NEGATIVE) Diagnostic Findings ABDOMEN AND PELVIS CT WITH IV CONTRAST CT DOSE: 829.51 mGy.cm HISTORY: Acute right lower quadrant abdominal pain RLQ abd pain TECHNIQUE: Multiaxial CT images of the abdomen and pelvis were performed following the IV administration of 94 cc of Optiray, A dose lowering technique was utilized adhering to the principles of ALARA. COMPARISON STUDY: None. FINDINGS: The lung bases are clear. The liver, spleen, gallbladder, pancreas, kidneys, and adrenal glands are within normal limits. The appendix is dilated and fluid-filled measuring up to 11 mm transversely. There is periappendiceal inflammation without drainable fluid collection. Small amount of free pelvic fluid. No bowel wall thickening or obstruction. Moderate wall thickening which is partially decompressed. Uterus and adnexa are unremarkable. No suspicious lytic or blastic osseous lesions. IMPRESSION: Acute appendicitis. No pneumoperitoneum or abscess. ACT 112: Negative or not required by law. Code Status & VTE Plan VTE Prophylaxis Plan VTE Prophylaxis will be ordered: Yes
[2023-08-01] MEDS ORDERED: fentaNYL citrate PF 100 MCG/2 ML VIAL ONE (09:35)
[2023-08-01] MEDS ORDERED: MIDAZOLAM HCL 1 MG/ML 2ML VIAL ONE (09:35)
[2023-08-01] MEDS ORDERED: BUPIVACAINE/EPINEPHRINE 0.5% MPF 1:200,000 30 ML VIAL ONE (09:38)
[2023-08-01] MEDS ORDERED: PROPOFOL IV EMULSION 10 MG/ML 20 ML VIAL IV ONE (10:00)
[2023-08-01] MEDS ORDERED: ONDANSETRON INJ 2 MG/ML 2 ML VIAL ONE (10:00)
[2023-08-01] MEDS ORDERED: ROCURONIUM BROMIDE 10 MG/ML 5 ML VIAL IV ONE (10:00)
[2023-08-01] MEDS ORDERED: DEXAMETHASONE SOD INJ 4 MG/ML VIAL ONE (10:00)
[2023-08-01] MEDS ORDERED: NEOSTIGMINE METHYLSULFATE 1 MG/ML 10ML VIAL ONE (10:28)
[2023-08-01] MEDS ORDERED: GLYCOPYRROLATE 0.2 MG/ML VIAL ONE (10:28)
--- NOTE | 2023-08-01 10:35 | Post Operative Brief Note ---
Immediate Post Op Note v1 Date of Surgery August 01, 2023 Pre & Post Diagnosis Operation Date: 08/01/23 09:10 Pre-Op Diagnosis: Acute Appendicitis Post-Op Diagnosis: Acute Appendicitis I identified the patient and participated in the time-out.: Yes Procedure Operation Date: 08/01/23 09:10 Actual Procedures p Laparoscopic Appendectomy(Not Applicable) - Hamlet Coughlin MD Surgeon Hamlet Coughlin MD Hospice Manager None Estimated Blood Loss 5 Findings Consistent with Post-Op Diagnosis Drains Vogel Catheter (inserted after induction of anesthesia by Dyana Taylor RN without difficulty, removed at end of procedure)
--- NOTE | 2023-08-01 10:36 | Operative Report ---
Post Operative Report Pre & Post Diagnosis Operation Date: 08/01/23 09:10 Pre-Op Diagnosis: Acute Appendicitis Post-Op Diagnosis: Acute Appendicitis I identified the patient and participated in the time-out.: Yes Procedure Operation Date: 08/01/23 09:10 Actual Procedures p Laparoscopic Appendectomy(Not Applicable) - Hamlet Coughlin MD Surgeon Hamlet Coughlin MD Dental Appliance Fixer None Estimated Blood Loss 5 Findings Consistent with Post-Op Diagnosis Acute appendicitis, no perforation Specimens Appendix Drains None Anesthesia Type General Complications No immediate complications Description of Procedure The patient was taken to the operating room, and placed supine on the operating table. A timeout was performed, perioperative antibiotics were administered, SCD boots were placed. After adequate anesthesia and analgesia was obtained, the abdomen was prepped and draped in the normal sterile fashion. A 1 cm incision was made in the supraumbilical region and carried down to the level of the fascia. A trach hook was used to grasp the fascia and elevated and a varies needle was used to enter the abdominal cavity. The abdomen was insufflated to a pressure of 15 mmHg, and a 5 mm trocar was placed in this location. A 5 mm 30 degree laparoscope was placed into the abdominal cavity, and the abdomen was surveyed. The patient was placed in Trendelenburg and slightly to the left. One 5 mm trocar was placed in the right upper quadrant, and one 12 mm trocar was placed in the left lower quadrant under direct visualization. The right colon was identified and traced down to the cecum. The appendix was identified and elevated anteriorly and medially. A window was created at the base of the appendix with a [place] dissector. The Endo DAVID stapler was used to transect the appendix at its base through noninflamed tissue, and subsequently the mesoappendix. The appendix was placed in an Endo Catch bag, and removed via the left lower quadrant port site. Attention was turned to hemostasis, which was excellent. The abdomen was copiously irrigated and suctioned free, and again hemostasis was found to be excellent. All trochars removed under direct visualization. The abdomen was desufflated. The fascia in the 12 mm port site was closed with a 0 Vicryl suture. The skin was closed with a running 4-0 Monocryl subcuticular stitch. Dermabond was applied. The patient tolerated the procedure without complication, and was transferred in stable condition to the PACU. All instrument, needle, and sponge counts were correct at the end of the case. I attest to the content of the Intraoperative Record and any orders documented therein. Any exceptions are noted below.
[2023-08-01] MEDS ORDERED: oxyCODONE/ACETAMINOPHEN 5mg/325mg TAB PO PRN (11:51)
[2023-08-01] MEDS ORDERED: KETOROLAC 30 MG/ML VIAL IV PRN (11:51)
[2023-08-01] MEDS ORDERED: ACETAMINOPHEN 325 MG TAB PO PRN (13:35)
--- NOTE | 2023-08-01 14:14 | Anesthesiology Progress Note ---
Date of Service August 01, 2023 Anesthesia Post Procedure Vital Signs Vital Signs: Temp Pulse Pulse Pulse Resp BP BP 08/01/23 13:51 97.9 F 57 L 16 130/70 08/01/23 12:50 66 18 113/71 08/01/23 12:25 59 L 18 115/59 L 08/01/23 11:51 98.4 F 59 L 16 115/75 08/01/23 11:30 60 14 119/74 08/01/23 11:20 62 16 118/68 08/01/23 11:10 98.8 F 61 16 121/72 08/01/23 11:00 63 14 120/67 08/01/23 10:50 71 14 121/78 08/01/23 10:47 97.5 F L 87 16 128/79 08/01/23 09:19 98.4 F 56 L 18 120/79 08/01/23 08:17 98.1 F 60 16 121/72 07/31/23 22:50 07/31/23 22:50 98.8 F 58 L 16 119/74 07/31/23 20:31 70 19 143/99 H 07/31/23 20:15 62 20 147/85 H 07/31/23 15:51 97.7 F 69 18 130/87 Pulse Ox O2 Del Method 08/01/23 13:51 96 Room Air 08/01/23 12:50 96 Room Air 08/01/23 12:25 97 Room Air 08/01/23 11:51 97 Room Air 08/01/23 11:30 96 Room Air 08/01/23 11:20 100 Room Air 08/01/23 11:10 100 Room Air 08/01/23 11:00 99 Room Air 08/01/23 10:50 98 Room Air 08/01/23 10:47 100 Room Air 08/01/23 09:19 100 Room Air 08/01/23 08:17 99 Room Air 07/31/23 22:50 Room Air 07/31/23 22:50 100 Room Air 07/31/23 20:31 100 Room Air 07/31/23 20:15 97 Room Air 07/31/23 15:51 97 Room Air Pain Intensity Abdomen: Pain Intensity: 5 Transfer of Care Handoff Completed per policy Notes Mental Status: alert / awake / arousable and participated in evaluation Patient Amnestic to Procedure: Yes Nausea / Vomiting: adequately controlled Pain: adequately controlled Airway Patency, RR, SpO2: stable & adequate BP & HR: stable & adequate Hydration State: stable & adequate Anesthetic Complications: no major complications apparent and Pt Satisfied with anesthetic care
--- NOTE | 2023-08-01 18:43 | Discharge Summary ---
Date of Service August 01, 2023 Admission HPI Per Admitting Provider 22-year-old female presents with 1 day history of severe right lower quadrant pain, nausea vomiting. CT scan demonstrates appendicitis. Principal Diagnosis acute appendicitis Discharge Data Allergies Allergy/AdvReac Type Severity Reaction Status Date / Time No Known Allergies Allergy Verified 08/01/23 09:08 Procedures Performed Operation Date: 08/01/23 09:10 Actual Procedures p Laparoscopic Appendectomy(Not Applicable) - Hamlet Coughlin MD Ordered Studies 07/31/23 15:54 CT abd pelvis IV con only Stat Hospital Course (1) Acute appendicitis: Plan Patient was admitted to medical/surgical floor from emergency department and started on IV fluids, pain management, antiemetics as needed and IV antibiotics and kept NPO. She was taken to operating room morning of HD # 1 on 08/01/2023 for laparoscopic appendectomy by Dr. Coughlin. Patient found to have acute appendicitis without perforation or abscess. Patient tolerated procedure without difficulty. She was transferred back to med/surg floor for postop care. Activity as tolerated, diet advanced as tolerated, and pain management as needed. Patient was discharged home in evening of POD # 0 in stable condition. Total Time Total Time Spent Total Time Spent (In Minutes): 20 minutes Discharge Plan Discharge Items Patient Disposition: Home - Self-Care Reason For Visit: ACUTE APPENDICITIS Discharge Diagnosis: acute appendicitis Activity: Per Instructions section Non-emergency contact: Primary Care Provider and Surgeon Call non-emergency contact if: you have any medication questions, your pain is not controlled, your pain is worsening, you have a fever, your temperature is above 101, your wound has increased redness, your wound has increased drainage and your wound pain has increased Follow-up/Referrals: Yohana Bojorquez PA-C [Physician Stack Matcher] - [facility] [Primary Care Provider] - Diet: Regular Addtl Attending Provider Instructions: Post-Surgical ~Discharge Instructions Activity Recommendations: - lifting limitation: (20 pounds for 2-3weeks), - exercise/sex/sports limit: (nonstrenuous for 2 weeks), - driving or machine use limit: (none for 1 week or until pain free and no longer taking narcotic pain medication), - Shower/bathe limit: (may shower beginning tomorrow) Diet: - Resume previous diet SPECIAL CARE INSTRUCTIONS: - May shower in 24 hours. Let water run over area and pat dry. - Leave surgical glue on incisions, this will fall off on its own. - Call the surgeon's office with any questions or concerns - - (ex. temperature higher than 101 degrees F, excessive bleeding or pain). MEDICATIONS: - Resume previous medications unless instructed otherwise by your surgeon. - May alternate extra strength Tylenol and Ibuprofen as needed for mild to moderate pain -650 mg Tylenol every 6 hours as needed - Ibuprofen 600 mg every 6 hours as needed (take with food) - Percocet 1 every 6 hours, as needed for moderate to severe pain - Recommend daily stool softener (Colace) while taking narcotic pain medication to prevent constipation or straining. Drink plenty of water daily. FOLLOW UP VISIT: - If not already scheduled, please call the office to schedule a one-two week follow-up appointment. Office number Pending Studies at Discharge: Yes (appendix pathology, will be reviewed at postop visit) Stand-Alone Forms: My [facility] [employer], Work/School Release, Smoking Cessa tion Medications and DC Order Prescriptions: New oxycodone-acetaminophen 5-325 mg tablet 1 tab PO Q6H PRN (Reason: pain) Qty: 10 0RF Discharge Orders: Discharge Order (Routine); Ordered 08/01/23 Ordered By: Yohana Pearce/Other Patient Handouts: Appendectomy Admission Data Admit Date/Time: 07/31/23 20:57 Attending Provider: Brisa Gonzalez Admit Provider: Brisa Gonzalez Primary Care Provider: [place],[facility] Other Interventions: Discharge Summary Assessment (RN) Last Done: 08/01/23 17:22
== END 2023-08-01 18:02 | disposition home or self-care (01) ==
LOC: 3W 15:11 → ED 15:11 → 3W 22:02
DX: K35.80 Unspecified acute appendicitis